=== PATIENT | male | born 1950 | race Caucasian/White ===

== ENCOUNTER 2018-12-19 11:34 | Emergency (ER) | payer MEDICARE, OTHER ==
[~2018-12-19] VITALS: Ht 180.3 cm; Wt 65.3 kg
[2018-12-19 12:13] LABS: BILIRUBIN,URINE NEGATIVE (NEGATIVE); CLARITY,URINE CLEAR; COLOR,URINE YELLOW; GLUCOSE, URINE (UA) NEGATIVE (NEGATIVE); KETONES,URINE NEGATIVE (NEGATIVE); LEUKOCYTE ESTERASE ,URINE 2+ (NEGATIVE); NITRITE,URINE NEGATIVE (NEGATIVE); PH,URINE 8 (5-9); PROTEIN,URINE NEGATIVE (NEGATIVE); UROBILINOGEN,URINE NORMAL (NORMAL)
[2018-12-19 12:21] LABS: BASOPHILS # (AUTO) 0.1 10^3/uL (0.0-0.1); BASOPHILS % (AUTO) 2 % (0-10); EOSINOPHILS # (AUTO) 0.3 10^3/uL (0.0-0.3); EOSINOPHILS % (AUTO) 4 % (0-10); HEMATOCRIT 44 % (40-54); LYMPHOCYTES % (AUTO) 29 % (12-44); MEAN CORPUSCULAR HEMOGLOBIN 31 PG (25-34); MEAN CORPUSCULAR HGB CONC 35 G/DL (32-36); MEAN CORPUSCULAR VOLUME 90 FL (80-99); MEAN PLATELET VOLUME 9.7 FL (7.4-10.4); MONOCYTES # (AUTO) 0.5 X 10^3 (0.0-1.0); MONOCYTES % (AUTO) 8 % (0-12); NEUTROPHILS % (AUTO) 59 % (42-75); PLATELET COUNT 235 10^3/uL (130-400); WHITE BLOOD COUNT 6.8 10^3/uL (4.3-11.0)
--- NOTE | 2018-12-19 12:21 | ED General ---
General Chief Complaint: Abdominal/GI Problems Stated Complaint: ABD PAIN Nursing Triage Note: TO TRIAGE WITH MULTIPLE COMPLAINTS. COMPLAINS OF LEFT SIDED HEAD PAIN THAT RADIATES DOWN THE LEFT SIDE OF HIS BODY FOR YEARS. HAS SEEN A DR BUT WANTS A 2ND OPINION. ALSO COMPLAINS OF CONSTIPATION FOR A WEEK. Nursing Sepsis Screen: No Definite Risk Source of Information: Patient Exam Limitations: No Limitations History of Present Illness Date Seen by Provider: Dec 19, 2018 Time Seen by Provider: 12:17 Initial Comments tHE PATIENT IS A 68-YEAR-OLD WHITE MALE WHO presents with the complaint of headache. This is described is principally left sided. He states it has been present for 2 years or more and sometimes radiates pain down his left side. When asked about workup by his personal physician Dr. cardenas, he states that he is seen him several times but no diagnosis has been made. He also states that he once weighed 190 pounds now weighs 144 pounds. He is also indefinite about the time interval relative to this weight loss. Allergies and Home Medications Allergies Coded Allergies: No Known Drug Allergies (Unverified , 12/19/18) Patient Home Medication List Home Medication List Reviewed: Yes Review of Systems Review of Systems Constitutional: see HPI EENTM: other (headache as in history of present illness) Cardiovascular: no symptoms reported Gastrointestinal: no symptoms reported, other (a bit constipated lately) Genitourinary: no symptoms reported Musculoskeletal: no symptoms reported Skin: no symptoms reported Psychiatric/Neurological: No Symptoms Reported Hematologic/Lymphatic: No Symptoms Reported Immunological/Allergic: no symptoms reported Past Qqtridz-Dhkbii-Jyapyc Hx Patient Social History Alcohol Use: Denies Use Recreational Drug Use: No Smoking Status: Current Everyday Smoker Type Used: Cigarettes 2nd Hand Smoke Exposure: No Recent Foreign Travel: No Contact w/Someone Who Travel: No Recent Infectious Disease Expo: No Recent Hopitalizations: No Immunizations Up To Date Tetanus Booster (TDap): Less than 5yrs PED Vaccines UTD: Yes Seasonal Allergies Seasonal Allergies: No Past Medical History Surgeries: Yes (back fx in 2005) Appendectomy, Orthopedic Respiratory: No Cardiac: Yes Hypertension Neurological: Yes Spinal Cord Injury, Traumatic Brain Injury Genitourinary: No Gastrointestinal: Yes Chronic Constipation Musculoskeletal: No Endocrine: No HEENT: No Cancer: No Psychosocial: No Integumentary: No Physical Exam Vital Signs Vital Signs - First Documented 12/19/18 11:35 Temp 96.4 Pulse 78 Resp 16 B/P (MAP) 155/111 (126) Pulse Ox 97 O2 Delivery Room Air Capillary Refill : Less Than 3 Seconds Height, Weight, BMI Height: 5'11.00" Weight: 144lbs. oz. 65.168159np; BMI Method:Stated General Appearance: No Apparent Distress Eyes: Bilateral Eye Normal Inspection HEENT: Normal ENT Inspection Neck: Full Range of Motion Respiratory: Chest Non Tender, Lungs Clear, Normal Breath Sounds, No Accessory Muscle Use, No Respiratory Distress Cardiovascular: Regular Rate, Rhythm, No Edema, No Gallop, No JVD, No Murmur, Normal Peripheral Pulses Gastrointestinal: Normal Bowel Sounds, No Organomegaly, Non Tender Extremity: Normal Capillary Refill, Normal Inspection, Normal Range of Motion, Non Tender, No Calf Tenderness, No Pedal Edema Neurologic/Psychiatric: Alert, Oriented x3, asphalt layer II-XII Norm as Tested Skin: Normal Color, Warm/Dry Lymphatic: No Adenopathy Progress/Results/Core Measures Suspected Sepsis Recent Fever Within 48 Hours: No Infection Criteria Present: None New/Unexplained Altered Menta: No Sepsis Screen: No Definite Risk SIRS Temperature:96.4 Pulse: 78 Respiratory Rate: 16 Laboratory Tests 12/19/18 12:18: White Blood Count 6.8 Blood Pressure 155 /111 Mean: 126 Laboratory Tests 12/19/18 12:18: Creatinine 0.89, Platelet Count 235, Total Bilirubin 0.6 Results/Orders Lab Results Laboratory Tests Test 12/19/18 11:45 12/19/18 12:18 Range/Units Urine Color YELLOW Urine Clarity CLEAR Urine pH 8 5-9 Urine Specific Sheldon 1.010 L 1.016-1.022 Urine Protein NEGATIVE NEGATIVE Urine Glucose (UA) NEGATIVE NEGATIVE Urine Ketones NEGATIVE NEGATIVE Urine Nitrite NEGATIVE NEGATIVE Urine Bilirubin NEGATIVE NEGATIVE Urine Urobilinogen NORMAL NORMAL MG/DL Urine Leukocyte Esterase 2+ H NEGATIVE Urine RBC (Auto) NEGATIVE NEGATIVE Urine RBC NONE /HPF Urine WBC 5-10 H /HPF Urine Squamous Epithelial Cells 2-5 /HPF Urine Crystals PRESENT H /LPF Urine Amorphous Sediment FEW MARCO PHOSPHATE H /LPF Urine Bacteria TRACE /HPF Urine Casts NONE /LPF Urine Mucus NEGATIVE /LPF Urine Culture Indicated YES White Blood Count 6.8 4.3-11.0 10^3/uL Red Blood Count 4.82 4.35-5.85 10^6/uL Hemoglobin 15.0 13.3-17.7 G/DL Hematocrit 44 40-54 % Mean Corpuscular Volume 90 80-99 FL Mean Corpuscular Hemoglobin 31 25-34 PG Mean Corpuscular Hemoglobin Concent 35 32-36 G/DL Red Cell Distribution Width 12.0 10.0-14.5 % Platelet Count 235 130-400 10^3/uL Mean Platelet Volume 9.7 7.4-10.4 FL Neutrophils (%) (Auto) 59 42-75 % Lymphocytes (%) (Auto) 29 12-44 % Monocytes (%) (Auto) 8 0-12 % Eosinophils (%) (Auto) 4 0-10 % Basophils (%) (Auto) 2 0-10 % Neutrophils # (Auto) 4.0 1.8-7.8 X 10^3 Lymphocytes # (Auto) 2.0 1.0-4.0 X 10^3 Monocytes # (Auto) 0.5 0.0-1.0 X 10^3 Eosinophils # (Auto) 0.3 0.0-0.3 10^3/uL Basophils # (Auto) 0.1 0.0-0.1 10^3/uL Sodium Level 144 135-145 MMOL/L Potassium Level 4.0 3.6-5.0 MMOL/L Chloride Level 106 98-107 MMOL/L Carbon Dioxide Level 30 21-32 MMOL/L Anion Gap 8 5-14 MMOL/L Blood Urea Nitrogen 12 7-18 MG/DL Creatinine 0.89 0.60-1.30 MG/DL Estimat Glomerular Filtration Rate > 60 BUN/Creatinine Ratio 13 Glucose Level 99 70-105 MG/DL Calcium Level 9.9 8.5-10.1 MG/DL Corrected Calcium 9.5 8.5-10.1 MG/DL Total Bilirubin 0.6 0.1-1.0 MG/DL Aspartate Amino Transf (AST/SGOT) 13 5-34 U/L Alanine Aminotransferase (ALT/SGPT) 14 0-55 U/L Alkaline Phosphatase 85 40-136 U/L Total Protein 7.0 6.4-8.2 GM/DL Albumin 4.5 3.2-4.5 GM/DL My Orders Orders - YOHANA PLASENCIA MD Cbc With Automated Diff (12/19/18 11:56) Comprehensive Metabolic Panel (12/19/18 11:56) Ua Culture If Indicated (12/19/18 11:56) Urine Culture (12/19/18 11:45) Ct Head Wo (12/19/18 12:50) Vital Signs/I&O 12/19/18 11:35 Temp 96.4 Pulse 78 Resp 16 B/P (MAP) 155/111 (126) Pulse Ox 97 O2 Delivery Room Air Capillary Refill : Less Than 3 Seconds Blood Pressure Mean: 126 Departure Communication (Admissions) CT head returned with no evidence of intracranial pathology. Lab was basically normal save a UA which suggests urinary tract infection. Impression Primary Impression: chronic headaches Additional Impression: urinary tract infection Disposition: HOME, SELF-CARE Condition: Stable/Unchanged Departure-Patient Inst. Decision time for Depature: 13:30 Referrals: NO,LOCAL PHYSICIAN (PCP) Primary Care Physician Patient Instructions: No Instuctions Given Add. Discharge Instructions: All discharge instructions reviewed with patient and/or family. Voiced understanding. Given the long-term headache problem would be reasonable to seek referral to a neurologist. Take Omnicef as directed for urinary tract infection. Obtain MiraLAX [id number] and take 1 measure in water or juice daily Scripts Cefdinir (Cefdinir) 300 Mg Capsule 300 MG PO twice a day, #14 CAP Prov: YOHANA PLASENCIA MD 12/19/18 YOHANA PLASENCIA MD Dec 19, 2018 12:21
[2018-12-19 12:23] LABS: AMORPHOUS SEDIMENT,UR FEW AMOR PHOSPHATE /LPF; BACTERIA,URINE TRACE /HPF
[2018-12-19 12:39] LABS: ALANINE AMINOTRANSFERASE 14 U/L (0-55); ALBUMIN 4.5 GM/DL (3.2-4.5); ALKALINE PHOSPHATASE 85 U/L (40-136); BILIRUBIN,TOTAL 0.6 MG/DL (0.1-1.0); BUN/CREATININE RATIO 13; CALCIUM 9.9 MG/DL (8.5-10.1); CARBON DIOXIDE 30 MMOL/L (21-32); CHLORIDE 106 MMOL/L (98-107); CREATININE SERUM 0.89 MG/DL (0.60-1.30); GFR ESTIMATED > 60; GLUCOSE 99 MG/DL (70-105); SODIUM 144 MMOL/L (135-145)
--- NOTE | 2018-12-19 13:14 | Diagnostic Imaging Report ---
PROCEDURE: CT head without contrast. TECHNIQUE: Multiple contiguous axial images were obtained through the brain without the use of intravenous contrast. Auto Exposure Controls were utilized during the CT exam to meet ALARA standards for radiation dose reduction. INDICATION: Left-sided head pain. COMPARISON: None. FINDINGS: The ventricles and cortical sulci are age-appropriate. There is no midline shift or mass-effect. No acute intracranial hemorrhage is seen. There is no CT evidence of acute territorial ischemia. No focal masses or collections are present. The calvarium is intact. The visualized paranasal sinuses are clear. IMPRESSION: No hemorrhage or focal intra-axial mass. No CT evidence of large acute territorial ischemia. Dictated by: Dictated on workstation # [id number]
[2018-12-19] MEDS ORDERED: CEFD300C3 PO (13:32)
[2018-12-19 13:50] VITALS: BP 127/91
== END 2018-12-19 14:01 | disposition home or self-care (01) ==
LOC: EDUNIT# 11:34 → ER 11:36 → EDBD 11:36 → ER 14:01
DX: N39.0 Urinary tract infection, site not specified (principal); R51 Headache; I10 Essential (primary) hypertension; F17.210 Nicotine dependence, cigarettes, uncomplicated; Z87.19 Personal history of other diseases of the digestive system; Z87.820 Personal history of traumatic brain injury; Z90.49 Acquired absence of other specified parts of digestive tract
CPT/HCPCS: 36415; 70450; 80053; 81000; 85025; 87077; 87088

== ENCOUNTER 2019-12-12 10:35 | Emergency (ER) | payer MEDICARE, MEDICAID ==
[~2019-12-12] VITALS: Ht 180 cm; Wt 65.0 kg
[~2019-12-12 10:35] MED LIST: CEFD300C3 PO
[2019-12-12] MEDS ORDERED: IBUPROFEN 600 MG (MOTRIN) TAB PO ONE (10:45)
--- OUTSIDE RECORDS SUMMARY | 2019-12-12 10:50 | XMS REPORT ---
Author Author Harman BRONSON Organization [facility] Address [address] [place] [address] Care Team Providers Care Jive Developer Name Role Phone JOHAN BRONSON Unavailable PROBLEMS Type Condition ICD9-CM Code CFJ72-GC Code Onset Dates Condition S tatus SNOMED Code Problem Health examination of defined subpopulation V70.5 Active 283091974 Problem Benign hypertension I10 Active [id number] ALLERGIES No Information ENCOUNTERS Encounter Location Date Diagnosis [address] [address] Nov, Benign hypertension I10 [address] [address] Oct, [address] [address] Oct, [address] [address] September, [address] [address] September, [address] [address] Jun, [facility] [address] [facility] [id number] [address] [place] [id number] Oct, [facility] [address] [facility] [id number] [address] [place] [id number] Oct, IMMUNIZATIONS No Known Immunizations SOCIAL HISTORY Never Assessed REASON FOR VISIT PLAN OF CARE VITAL SIGNS MEDICATIONS Unknown Medications RESULTS No Results PROCEDURES No Known procedures INSTRUCTIONS MEDICATIONS ADMINISTERED No Known Medications MEDICAL (GENERAL) HISTORY Type Description Date Medical History Hypertension Medical History COPD (chronic obstructive pulmonary dise ase) Medical History Neuropathy Medical History Pulmonary emphysema
--- OUTSIDE RECORDS SUMMARY | 2019-12-12 10:50 | XMS REPORT | Continuity of Care Document ---
Author Organization Unknown Address Unknown Phone Unavailable Allergies Active Description Code Type Severity Reaction Onset Reported/Identified Relationship to Patient Clinical Status Yes No Known Drug Allergies [id number] Drug Allergy Unknown N/A 12/19/2018 Medications There is no data. Problems Date Dx Coded Attending Type Code Diagnosis Diagnosed By 12/19/2018 YOHANA PLASENCIA MD Ot F17.210 NICOTINE DEPENDENCE, CIGARETTES, UNCOMPL 12/19/2018 YOHANA PLASENCIA MD Ot I10 ESSENTIAL (PRIMARY) HYPERTENSION 12/19/2018 YOHANA PLASENCIA MD Ot N39 .0 URINARY TRACT INFECTION, SITE NOT SPECIF 12/19/2018 YOHANA PLASENCIA MD Ot R51 HEADACHE 12/19/2018 YOHANA PLASENCIA MD Ot Z87.19 PERSONAL HISTORY OF OTHER DISEASES OF TH 12/19/2018 YOHANA PLASENCIA MD Ot Z87.820 PERSONAL HISTORY OF TRAUMATIC BRAIN INJU 12/19/2018 YOHANA PLASENCIA MD Ot Z90.49 ACQUIRED ABSENCE OF OTHER SPECIFIED PART 12/21/2018 YOHANA PLASENCIA MD Ot F17.210 NICOTINE DEPENDENCE, CIGARETTES, UNCOMPL 12/21/2018 YOHANA PLASNECIA MD Ot I10 ESSENTIAL (PRIMARY) HYPERTENSION 12/21/2018 YOHANA PLASENCIA MD Ot N39 .0 URINARY TRACT INFECTION, SITE NOT SPECIF 12/21/2018 YOHANA PLASENCIA MD Ot R51 HEADACHE 12/21/2018 YOHANA PLASENCIA MD Ot Z87.19 PERSONAL HISTORY OF OTHER DISEASES OF TH 12/21/2018 YOHANA PLASENCIA MD Ot Z87.820 PERSONAL HISTORY OF TRAUMATIC BRAIN INJU 12/21/2018 YOHANA PLASENCIA MD Ot Z90.49 ACQUIRED ABSENCE OF OTHER SPECIFIED PART 06/01/2019 YOHANA PLASENCIA MD Ot F17.210 NICOTINE DEPENDENCE, CIGARETTES, UNCOMPL 06/01/2019 YOHANA PLASENCIA MD Ot I10 ESSENTIAL (PRIMARY) HYPERTENSION 06/01/2019 YOHANA PLASENCIA MD Ot N39 .0 URINARY TRACT INFECTION, SITE NOT SPECIF 06/01/2019 YOHANA PLASENCIA MD Ot R51 HEADACHE 06/01/2019 YOHANA PLASENCIA MD Ot Z87.19 PERSONAL HISTORY OF OTHER DISEASES OF TH 06/01/2019 YOHANA PLASENCIA MD Ot Z87.820 PERSONAL HISTORY OF TRAUMATIC BRAIN INJU 06/01/2019 YOHANA PLASENCIA MD, Ot Z90.49 ACQUIRED ABSENCE OF OTHER SPECIFIED PART Procedures There is no data. Results Test Result Range Complete urinalysis with reflex to cultu re - 12/19/18 11:45 Urine color determination YELLOW NRG Urine clarity determination CLEAR NR G Urine pH measurement by test strip 8 5-9 Specific gravity of urine by test strip 1.010 1.016-1.022 Urine protein assay by test strip, semi-quantitative NEGATIVE NEGATIVE Urine glucose detection by automated test strip NE GATIVE NEGATIVE Erythrocytes detection in urine sediment by light micr oscopy NEGATIVE NEGATIVE Urine ketones detection by automated test strip NE GATIVE NEGATIVE Urine nitrite detection by test strip NEGATIVE NEGATIVE Urine total bilirubin detection by test strip NEGA TIVE NEGATIVE Urine urobilinogen measurement by automated test strip (mass/volume) NORMAL NORMAL Urine leukocyte esterase detection by dipstick 2+ NEGATIVE Automated urine sediment erythrocyte cou nt by microscopy (number/high power field) NONE NRG Automated urine sediment leukocyte count by microscopy (number/high power field) [HPF] NRG Bacteria detection in urine sediment by light microsco py TRACE NRG Squamous epithelial cells detection in u rine sediment by light microscopy 2-5 NRG Crystals detection in urine sediment by light microsco py PRESENT NRG Casts detection in urine sediment by light microscopy NONE NRG Mucus detection in urine sediment by light microscopy NEGATIVE NRG Complete urinalysis with reflex to culture YES NRG Amorphous sediment detection in urine sediment by ligh t microscopy FEW MARCO PHOSPHATE NRG Bacterial urine culture - 12/19/18 11:45 Bacterial urine culture [id number] NRG COLONY COUNT 50,000 CFU/ML NRG FTX;REPORTABLE SUSCEPTIBILITY REPORTED 12/23 10:45 NRG Dirithromycin susceptibility test by dis k diffusion - 12/19/18 11:45 Oxacillin susceptibility test by minimum inhibitory co ncentration > NRG Vancomycin susceptibility test by minimum inhibitory c oncentration 1 NRG Levofloxacin susceptibility test by minimum inhibitory concentration > NRG Rifampin susceptibility test by minimum inhibitory con centration <= NRG Cefazolin susceptibility test by minimum inhibitory co ncentration R NRG Nitrofurantoin susceptibility test by mi nimum inhibitory concentration <= NRG Penicillin G susceptibility test by minimum inhibitory concentration > NRG Complete blood count (CBC) with automate d white blood cell (WBC) differential - 12/19/18 12:18 Blood leukocytes automated count (number/volume) 6.8 10*3/uL 4.3-11.0 Blood erythrocytes automated count (number/volume) 4.82 10*6/uL 4.35-5.85 Venous blood hemoglobin measurement (mass/volume) 15.0 g/dL 13.3-17.7 Blood hematocrit (volume fraction) 44 % 40-54 Automated erythrocyte mean corpuscular volume 90 [ foz_us] 80-99 Automated erythrocyte mean corpuscular h emoglobin (mass per erythrocyte) 31 pg 25-34 Automated erythrocyte mean corpuscular h emoglobin concentration measurement (mass/volume) 35 g/dL 32-36 Automated erythrocyte distribution width ratio 12. 0 % 10.0- 14.5 Automated blood platelet count (count/volume) 235 10*3/uL 130-400 Automated blood platelet mean volume measurement 9.7 [foz_us] 7.4-10.4 Automated blood neutrophils/100 leukocytes 59 % 42-75 Automated blood lymphocytes/100 leukocytes 29 % 12-44 Blood monocytes/100 leukocytes 8 % 0-12 Automated blood eosinophils/100 leukocytes 4 % 0-10 Automated blood basophils/100 leukocytes 2 % 0-10 Blood neutrophils automated count (number/volume) 4.0 10*3 1.8-7.8 Blood lymphocytes automated count (number/volume) 2.0 10*3 1.0-4.0 Blood monocytes automated count (number/volume) 0. 5 10*3 0.0-1.0 Automated eosinophil count 0.3 10*3/uL 0 .0-0.3 Automated blood basophil count (count/volume) 0.1 10*3/uL 0.0-0.1 Comprehensive metabolic panel - 12/19/18 12:18 Serum or plasma sodium measurement (moles/volume) 144 mmol/L 135-145 Serum or plasma potassium measurement (moles/volume) 4.0 mmol/L 3.6-5.0 Serum or plasma chloride measurement (moles/volume) 106 mmol/L 98-107 Carbon dioxide 30 mmol/L 21-32 Serum or plasma anion gap determination (moles/volume) 8 mmol/L 5-14 Serum or plasma urea nitrogen measurement (mass/volume ) 12 mg/dL 7-18 Serum or plasma creatinine measurement (mass/volume) 0.89 mg/dL 0.60-1.30 Serum or plasma urea nitrogen/creatinine mass ratio 13 NRG Serum or plasma creatinine measurement w ith calculation of estimated glomerular filtration rate > NRG Serum or plasma glucose measurement (mass/volume) 99 mg/dL 70-105 Serum or plasma calcium measurement (mass/volume) 9.9 mg/dL 8.5-10.1 Serum or plasma total bilirubin measurement (mass/volu me) 0.6 mg/dL 0.1-1.0 Serum or plasma alkaline phosphatase devonte surement (enzymatic activity/volume) 85 U/L 40-136 Serum or plasma aspartate aminotransfera se measurement (enzymatic activity/volume) 13 U/L 5-34 Serum or plasma alanine aminotransferase measurement (enzymatic activity/volume) 14 U/L 0-55 Serum or plasma protein measurement (mass/volume) 7.0 g/dL 6.4-8.2 Serum or plasma albumin measurement (mass/volume) 4.5 g/dL 3.2-4.5 CALCIUM CORRECTED 9.5 mg/dL 8.5-10.1 [facility] - 11/21/19 09:25 GLUCOSE 98 mg/dL 65-99 UREA NITROGEN (BUN) 9 mg/dL 7-25 CREATININE 0.80 mg/dL 0.70-1.25 eGFR NON-AFR. PERUVIAN 92 mL/min/1.73m2 > OR = 60 eGFR 107 mL/min/1.73m2 > OR = 60 BUN/CREATININE RATIO NOT APPLICABLE (calc) 6-22 SODIUM 138 mmol/L 135-146 POTASSIUM 3.8 mmol/L 3.5-5.3 CHLORIDE 106 mmol/L 98-110 CARBON DIOXIDE 30 mmol/L 20-32 CALCIUM 9.5 mg/dL 8.6-10.3 PROTEIN, TOTAL 6.5 g/dL 6.1-8.1 ALBUMIN 4.3 g/dL 3.6-5.1 GLOBULIN 2.2 g/dL (calc) 1.9-3.7 ALBUMIN/GLOBULIN RATIO 2.0 (calc) 1.0-2. 5 BILIRUBIN, TOTAL 0.6 mg/dL 0.2-1.2 ALKALINE PHOSPHATASE 79 U/L 35-144 AST 14 U/L 10-35 ALT 14 U/L 9-46 CBC - 11/27/19 12:49 WHITE BLOOD CELL COUNT 6.6 Thousand/uL 3 .8-10.8 RED BLOOD CELL COUNT 4.71 Million/uL 4.2 0-5.80 HEMOGLOBIN 14.8 g/dL 13.2-17.1 HEMATOCRIT 44.2 % 38.5-50.0 MCV 93.8 fL 80.0-100.0 MCH 31.4 pg 27.0-33.0 MCHC 33.5 g/dL 32.0-36.0 RDW 11.9 % 11.0-15.0 PLATELET COUNT 226 Thousand/uL 140-400 MPV 10.6 fL 7.5-12.5 ABSOLUTE NEUTROPHILS 3584 cells/uL 1500- 7800 ABSOLUTE LYMPHOCYTES 2191 cells/uL 850-3 900 ABSOLUTE MONOCYTES 462 cells/uL 200-950 ABSOLUTE EOSINOPHILS 251 cells/uL 15-500 ABSOLUTE BASOPHILS 112 cells/uL 0-200 NEUTROPHILS 54.3 % NRG LYMPHOCYTES 33.2 % NRG MONOCYTES 7.0 % NRG EOSINOPHILS 3.8 % NRG BASOPHILS 1.7 % NRG TSH - 11/27/19 12:49 TSH 0.83 mIU/L 0.40-4.50 Encounters ACCT No. Visit Date/Time Discharge Status Pt. Type Provider Facility Loc./Unit Complaint [id number] 11/27/2019 11:15:00 11/27/2019 23:59: 59 CLS Outpatient PORFIRIO [facility]NDEZ [facility] [id number] 11/27/2019 11:15:00 Document Registration [id number] 11/21/2019 08:15:00 Document Registration [id number] 12/19/2018 11:36:00 019 14:01:00 DIS Emergency YOHANA PLASENCIA MD [facility] ER ABD PAIN [id number] 12/17/2019 13:15:00 P EN Preadmit PORFIRIO HERNÁNDEZ MD [facility] [place] SCREENING [id number] 12/12/2019 10:37:[address] Emergency PAIGE MAHAN DO [facility] ER FS FACIAL BURN
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
[2019-12-12 12:02] VITALS: BP 124/88
[2019-12-12] MEDS ORDERED: TETANUS,DIPTH,PERTUSS P/F (BOOSTRIX) 0.5 ML VIAL IM ONE (12:15)
== END 2019-12-12 12:10 | disposition home or self-care (01) ==
LOC: EDUNIT# 10:35 → ER FS 10:37
DX: T20.20XA Burn of second degree of head, face, and neck, unspecified site, initial encounter (principal); T20.26XA Burn of second degree of forehead and cheek, initial encounter; Z87.820 Personal history of traumatic brain injury; F17.210 Nicotine dependence, cigarettes, uncomplicated; X58.XXXA Exposure to other specified factors, initial encounter
CPT/HCPCS: 90471; 90715; 99283

== ENCOUNTER → 2019-12-17 | Outpatient (CLI) | payer MEDICARE, MEDICAID ==
--- NOTE | 2019-12-17 15:35 | Diagnostic Imaging Report ---
EXAMINATION: CT Chest without contrast (lung screening). TECHNIQUE: Multiple contiguous axial images were obtained through the chest without the use of intravenous contrast according to lung cancer screening protocol. All CT scans use one or more of the following dose optimizing techniques: automated exposure control, MA and/or KvP adjustment based on a patient size and exam type, or iterative reconstruction. HISTORY: 50 pack year history of smoking. COMPARISON: None available. FINDINGS: There is no edema or pneumonia. No pleural effusion. No pneumothorax. No suspicious nodules. The lungs are severely emphysematous. There is no axillary or supraclavicular lymphadenopathy. There is no mediastinal lymphadenopathy. Heart size is normal. There are moderate coronary artery calcifications. No pericardial effusion. Aorta is normal in caliber. Limited views of the upper abdomen r show a 2.9 x 1.4 cm right adrenal adenoma. There is a severe chronic-appearing upper thoracic vertebral body compression fracture with a mild chronic-appearing lower thoracic compression fracture as well. IMPRESSION: 1. No suspicious pulmonary nodules. 2. Severe emphysema. 3. Multiple chronic-appearing vertebral body compression fractures. LUNG-RADS CATEGORY: 1 MODIFIER: None. Dictated by: Dictated on workstation # [id number]
== END ==
LOC: RAD 12:48
PROVIDERS: ATTEND Family Medicine
DX: Z12.2 Encounter for screening for malignant neoplasm of respiratory organs (principal); J43.9 Emphysema, unspecified; M48.50XA Collapsed vertebra, not elsewhere classified, site unspecified, initial encounter for fracture; F17.210 Nicotine dependence, cigarettes, uncomplicated

== ENCOUNTER → 2021-02-25 | Outpatient (CLI) | payer MEDICARE, MEDICAID ==
--- NOTE | 2021-02-25 12:56 | Diagnostic Imaging Report ---
EXAMINATION: CT abdomen and pelvis without contrast. TECHNIQUE: Multiple contiguous axial images were obtained through the abdomen and pelvis without the use of intravenous contrast. All CT scans use one or more of the following dose optimizing techniques: automated exposure control, MA and/or KvP adjustment based on patient size and exam type or iterative reconstruction. HISTORY: HEMATURIA COMPARISON: None available. FINDINGS: Lung bases: Atelectasis and/or scarring in the lung bases. Solid organs: The liver is normal. The gallbladder is normal. There is no biliary ductal dilation. Pancreas is normal. There are multiple calcified granulomas within the spleen. There is a 3.0 cm right adrenal nodule with Hounsfield units of approximately 0 compatible with adrenal adenoma. The kidneys are normal without visualized calculus or hydronephrosis. Bowel: The stomach and small bowel are normal without obstruction. There is scattered colonic diverticulosis. No findings of acute appendicitis. Peritoneum: There is no intraperitoneal free fluid or free air. No suspicious lymphadenopathy. Vasculature: Calcification of the aorta without aneurysm. Musculoskeletal: There are compression fractures of the L1, L3, and L4 vertebral bodies. Multilevel degenerative changes of the spine. No suspicious osseous lesion. Pelvis: The prostate gland is enlarged. The urinary bladder is normal. IMPRESSION: 1. No visualized renal calculus or hydronephrosis. 2. No other acute abnormality in the abdomen or pelvis. 3. Age indeterminate compression fractures within the lumbar spine. 4. Colonic diverticulosis without findings of diverticulitis. Dictated by: Dictated on workstation # [id number]
== END ==
LOC: RAD FS 12:18
PROVIDERS: ATTEND Family Medicine
DX: R31.9 Hematuria, unspecified (principal); M48.56XA Collapsed vertebra, not elsewhere classified, lumbar region, initial encounter for fracture; K57.30 Diverticulosis of large intestine without perforation or abscess without bleeding
CPT/HCPCS: 74176